=== PATIENT | female | born 1960 | race African-American/Black ===

== ENCOUNTER 2016-09-19 06:59 | Emergency (ER) | payer OTHER ==
[~2016-09-19] VITALS: Ht 154.9 cm; Wt 48.7 kg
[~2016-09-19 06:59] MED LIST: ALPRAZOLAM0.5 MG PO; ALPRAZOLAM1 MG PO; AMLODIPINE BESY10 MG PO; AMLODIPINE BESYL5 MG PO; Aspirin E.C. PO; CIPRO500 MG PO; HYDROCHLOROTHIA25 MG PO; LAMOTRIGINE100 MG PO; LEVETIRACETAM500 MG PO; LISINOPRIL40 MG PO; METHADONE H5 MG/5 ML PO; METHADONE10 MG PO; NORVASC5 MG PO; SIMVASTATIN20 MG PO
[2016-09-19 07:30] LABS: ADD MIUA? NO; BILIRUBIN NEGATIVE; BLOOD NEGATIVE; COLOR STRAW ((YELLOW)); GLUCOSE (STRIP) NEGATIVE; KETONES NEGATIVE; LEUKOCYTES NEGATIVE; NITRITE NEGATIVE; PROTEIN (STRIP) NEGATIVE; SPECIFIC GRAVITY 1.005 (1.000-1.030); UCUL ADDED? NO; UROBILINOGEN 0.2 MG/DL (0.2-1.0)
[2016-09-19 07:47] LABS: HEMATOCRIT 39.9 % (36.0-46.0); MCH 28.2 PG (29.0-34.0); MCHC 32.6 G/DL (30.0-36.0); MCV 86.6 FL (83-99); RBC DIS.WIDTH-CV 14.6 % (11.8-14.6); RBC DIS.WIDTH-SD 46.5 % (39-53); RED BLOOD COUNT 4.61 M/uL (3.80-5.20); WHITE BLOOD COUNT 8.9 K/uL (4.1-10.2)
[2016-09-19 08:02] LABS: CHLORIDE 106 mEq/L (99-109); POTASSIUM 4.1 mEq/L (3.7-5.4); SODIUM 140 mEq/L (136-147)
[2016-09-19 08:04] LABS: GLUCOSE 124 mg/dL (70-99)
[2016-09-19 08:05] LABS: ANION GAP 12 MEQ/L (2-14)
[2016-09-19 08:06] LABS: TOTAL BILIRUBIN 0.4 mg/dL (0.0-1.0)
[2016-09-19 08:07] LABS: ALKALINE PHOSPHATASE 73 IU/L (3-129)
[2016-09-19 08:08] LABS: GFR ESTIMATE (CALCULATED) > 59 mL/min/
[2016-09-19 08:09] LABS: UREA NITROGEN (BUN) 8 mg/dL (9-23)
[2016-09-19 09:08] LABS: MEAN PLAT.VOLUME 10.5 uM^3 (9.5-12.4); PLATELET COUNT 230 K/uL (156-360)
[2016-09-19] MEDS ORDERED: CITRATE OF MAG296 ML PO (13:31)
[2016-09-19 13:45] VITALS: BP 145/87
== END 2016-09-19 13:45 | disposition home or self-care (01) ==
LOC: EME 06:59
DX: K59.00 Constipation, unspecified (principal); R10.84 Generalized abdominal pain; R11.2 Nausea with vomiting, unspecified; R63.4 Abnormal weight loss; Z68.20 Body mass index [BMI] 20.0-20.9, adult; F11.99 Opioid use, unspecified with unspecified opioid-induced disorder; F17.200 Nicotine dependence, unspecified, uncomplicated
CPT/HCPCS: 74176; 80053; 81003; 85027; 99281; 99285; J2270; J2405; J7030

== ENCOUNTER 2017-09-29 12:30 | Emergency (ER) | payer OTHER ==
[~2017-09-29] VITALS: Ht 154.9 cm; Wt 41.6 kg
[~2017-09-29 12:30] MED LIST changes: +ADVAIR 250/501 DISK IH; +ALBUTEROL2.5 MG/3 M IH; +AZITHROMYCIN250 MG1 PO; +CITRATE OF MAG296 ML PO; +DEBROX15 ML BOTH EARS; +LIPITOR20 MG PO; +NORVASC10 MG PO; +PRILOSEC20 MG PO; +SUBOXONE 4 MG-1 EACH SL; +VENTOLIN HFA18 GM IH; +VITAMIN D310000 UNI1 PO; +XANAX0.25 MG PO; +ZOLOFT50 MG PO
[2017-09-29 13:42] LABS: HEMATOCRIT 26.7 % (36.0-46.0); MCHC 33.7 G/DL (30.0-36.0); MCV 83.2 FL (83-99); PLATELET COUNT 271 K/uL (156-360); RBC DIS.WIDTH-CV 13.9 % (11.8-14.6); RBC DIS.WIDTH-SD 42.4 % (39-53); RED BLOOD COUNT 3.21 M/uL (3.80-5.20); WHITE BLOOD COUNT 4.6 K/uL (4.1-10.2)
[2017-09-29 14:24] LABS: CHLORIDE 102 mEq/L (99-109); POTASSIUM 3.9 mEq/L (3.7-5.4); SODIUM 136 mEq/L (136-147)
[2017-09-29 14:26] LABS: GLUCOSE 86 mg/dL (70-99)
[2017-09-29 14:30] LABS: CREATININE 1.1 mg/dL (0.6-1.3); GFR ESTIMATE (CALCULATED) > 59 mL/min/
[2017-09-29 14:31] LABS: UREA NITROGEN (BUN) 27 mg/dL (9-23)
[2017-09-29 17:40] VITALS: BP 88/63
== END 2017-09-29 17:41 | disposition left against medical advice (07) ==
LOC: EME 12:30
PROVIDERS: Emergency Medicine
DX: C79.9 Secondary malignant neoplasm of unspecified site (principal); C34.90 Malignant neoplasm of unspecified part of unspecified bronchus or lung; I95.9 Hypotension, unspecified; R93.7 Abnormal findings on diagnostic imaging of other parts of musculoskeletal system; I10 Essential (primary) hypertension; F17.200 Nicotine dependence, unspecified, uncomplicated; Z79.891 Long term (current) use of opiate analgesic; Z79.51 Long term (current) use of inhaled steroids
CPT/HCPCS: 72158; 80048; 83880; 85027; 93005; J2270

== ENCOUNTER → 2017-10-15 | Outpatient (CLI) | payer OTHER ==
[2017-10-15 09:10] LABS: HEMATOCRIT 23.8 % (36.0-46.0); HEMOGLOBIN 7.7 G/DL (11.9-15.5); MCHC 32.4 G/DL (30.0-36.0); MCV 86.5 FL (83-99); PLATELET COUNT 340 K/uL (156-360); RBC DIS.WIDTH-CV 16.5 % (11.8-14.6); RBC DIS.WIDTH-SD 50.6 % (39-53); RED BLOOD COUNT 2.75 M/uL (3.80-5.20); WHITE BLOOD COUNT 4.4 K/uL (4.1-10.2)
[2017-10-15 09:22] LABS: INTER. NORMALIZED RATIO 1.2
[2017-10-15 09:24] LABS: PTT 28.9 SEC (25-37)
== END | disposition home or self-care (01) ==
LOC: OPR 10-02 10:00 → EDSTATUS 10-02 10:00 → OPR 10-02 12:00
PROVIDERS: Family Medicine
PROC: 0BBJ3ZX Excision of Left Lower Lung Lobe, Percutaneous Approach, Diagnostic (ICD-10-PCS; principal; 2017-10-15)
DX: C34.32 Malignant neoplasm of lower lobe, left bronchus or lung (principal); J44.9 Chronic obstructive pulmonary disease, unspecified; I10 Essential (primary) hypertension; G40.89 Other seizures; E78.2 Mixed hyperlipidemia; F17.210 Nicotine dependence, cigarettes, uncomplicated; G89.29 Other chronic pain; F32.9 Major depressive disorder, single episode, unspecified; F11.20 Opioid dependence, uncomplicated
CPT/HCPCS: 71045; 77012; 85027; 85610; 85730; 88305; 88341 TC; 88342 TC; J3010